=== PATIENT | female | born 1950 | race Asian ===

== ENCOUNTER 2017-03-25 10:08 | Outpatient (CLI) | payer OTHER ==
[~2017-03-25 10:08] MED LIST: AMLO2.5T PO; ASPIR-8181 MG OR; CETIRIZINE10 MG PO; CITALOPRAM10 MG PO; COZAAR25 MG PO; CYCL10TA35 PO; CYPROHEPTAD4 MG OR; CYPROHEPTAD4 MG PO; MICROZIDE12.5 MG PO; MIRALAX3350 N1 OR; SIMV10TA PO
[2017-03-25 10:22] LABS: PLATELET COUNT 218 K/uL (152-353)
[2017-03-25 10:33] LABS: POTASSIUM 3.7 mmol/L (3.6-5.2)
== END 2017-03-25 20:00 | disposition home or self-care (01) ==
LOC: LABW 10:08
PROVIDERS: Specialist
DX: Z01.810 Encounter for preprocedural cardiovascular examination (principal)
CPT/HCPCS: 36415; 80053; 85027

== ENCOUNTER 2017-07-30 11:24 | Outpatient (CLI) | payer OTHER | END 2017-07-30 19:02 | disposition home or self-care (01) | LOC: RAD 11:24 | DX: J18.9 Pneumonia, unspecified organism (principal) ==

== ENCOUNTER 2017-08-20 11:39 | Outpatient (CLI) | payer OTHER ==
[2017-08-20 12:17] LABS: PLATELET COUNT 304 K/uL (152-353)
[2017-08-20 13:34] LABS: POTASSIUM 4.3 mmol/L (3.6-5.2)
== END 2017-08-20 19:10 | disposition home or self-care (01) ==
LOC: LABW 11:39
PROVIDERS: Physician Assistant
DX: E78.4 Other hyperlipidemia (principal); I12.9 Hypertensive chronic kidney disease with stage 1 through stage 4 chronic kidney disease, or unspecified chronic kidney disease; N18.3 Chronic kidney disease, stage 3 (moderate); Z79.899 Other long term (current) drug therapy; Z51.81 Encounter for therapeutic drug level monitoring
CPT/HCPCS: 80053; 80061; 83036; 84439; 84443; 85027

== ENCOUNTER 2017-08-23 08:58 | Outpatient (CLI) | payer OTHER | END 2017-08-23 11:00 | disposition home or self-care (01) | LOC: US 08:58 | DX: Z12.31 Encounter for screening mammogram for malignant neoplasm of breast (principal); Z78.0 Asymptomatic menopausal state ==

== ENCOUNTER 2017-08-26 08:45 | Outpatient (CLI) | payer OTHER | END 2017-08-26 10:00 | disposition home or self-care (01) | LOC: US 08:45 | DX: I50.9 Heart failure, unspecified (principal); R00.2 Palpitations; Z00.00 Encounter for general adult medical examination without abnormal findings; Z13.6 Encounter for screening for cardiovascular disorders ==

== ENCOUNTER 2017-10-14 07:23 | Outpatient (CLI) | payer OTHER | END 2017-10-14 07:27 | disposition short-term general hospital (02) | LOC: AMB 07:23 | DX: R09.2 Respiratory arrest (principal) | CPT/HCPCS: A0425; A0427 ==